=== PATIENT | male | born 1935 | race Asian ===

== ENCOUNTER 2018-05-05 18:39 | Emergency (ER) | payer OTHER ==
[~2018-05-05] VITALS: Ht 170.2 cm; Wt 81.6 kg
[2018-05-05] MEDS ORDERED: LOSARTAN POTASS25 MG ORAL (18:48)
[2018-05-05] MEDS ORDERED: LIPITOR80 MG ORAL (18:48)
[2018-05-05] MEDS ORDERED: ADALAT10 MG ORAL (18:48)
[2018-05-05 19:02] VITALS: BP 128/70
--- NOTE | 2018-05-05 19:02 | NUR ---
ED Nurse Note: Patient walked into ED c/o of a fever and cough, patient stated he started feeling these symptoms 2 weeks ago, came to ED because he has been having SOB, denies any pain. HR 106, other VSS. Will cont to monitor.
--- NOTE | 2018-05-05 19:09 | NUR ---
HAND-OFF: Report given to Bj Carcamo RN.
--- NOTE | 2018-05-05 19:10 | NUR ---
ED Nurse Note: Received report from RACHEL Garza. Pt in bed with no signs of acute distress. Family at bedside. Denies pain or SOB. elevated heart rate noted.
[2018-05-05] MEDS ORDERED: dilTIAZem HCl 25mg/5ml Inj IVP ONE (19:15)
--- NOTE | 2018-05-05 19:21 | Emergency Room Report ---
History of Present Illness General Chief Complaint: Upper Respiratory Illness Source: Patient, Family Member Present Illness HPI Patient is complaining about shortness of breath. He states this is been going on for one week. He was seen at another hospital where he had back x-rays for back pain. Apparently no EKG was done at that time. He's seen a master sonar technician in December. According to those notes he has hypertension aortic stenosis. He supposed be taking aspirin, clonidine, losartan, nifedipine and simvastatin. He states he has chest pain to his son but he denies chest pain to me. He's never heard of atrial fibrillation. The patient is quite variable historian and sometimes states that he's had a fever but then other times has not. There's been no loss of consciousness. The he did not receive a flu shot. He does not have productive phlegm. He was seen somewhere on and it's uncertain whether vital signs were done. Apparently x-rays were done for lower back pain. The family also states that he's had a history of kidney disease. There is no documentation of this in the records from December. Allergies: Coded Allergies: No Known Allergies (Unverified , 05/05/18) Patient History Past Medical History: see triage record Social History: Reports: smoking - stopped 10 years ago; Denies: alcohol use, drug use Social History Narrative retired soldier Reviewed Nursing Documentation: PMH: Agreed; PSxH: Agreed Nursing Documentation-PMH Past Medical History: No History, Except For Hx Hypertension: Yes Review of Systems All Other Systems: negative except mentioned in HPI - variable historian Physical Exam Vital Signs Date Time Temp Pulse Resp B/P (MAP) Pulse Ox O2 Delivery O2 Flow Rate FiO2 05/05/18 18:42 99.0 109 18 93 Room Air 05/05/18 19:02 128/70 Sp02 EP Interpretation: reviewed, abnormal - Interpreted as low by me General Appearance: well appearing, no apparent distress, GCS 15 Head: normocephalic Eyes: bilateral eye PERRL, bilateral eye other - arcus ENT: moist mucus membranes Neck: supple Respiratory: lungs clear, normal breath sounds Cardiovascular #1: no edema, tachycardia, irregularly irregular, other - I cannot hear murmur Cardiovascular #2: 2+ radial (R) Gastrointestinal: normal inspection, normal bowel sounds, non tender, no mass, non-distended Musculoskeletal: back normal, gait/station normal, normal range of motion Neurologic: alert, oriented x3, motor strength/tone normal, DTRs symmetric, sensory intact Psychiatric: mood/affect normal, other - poor historian Skin: normal inspection, warm/dry Medical Decision Making Diagnostic Impression: Primary Impression: Atrial fibrillation with RVR Additional Impressions: History of aortic stenosis Renal insufficiency ER Course Patient presents with dyspnea. Differential includes upper respiratory infection, acute myocardial infarction, arrhythmia, pulmonary embolus, congestive heart failure, exacerbation of valvular heart disease amongst others. Evaluation will be with EKG, chest x-ray and labs. On a color television console monitor patient has atrial fibrillation with rapid ventricular response rate. EKG with A. fib with rapid ventricular response no hyperacute changes. Diltiazem is ordered. After diltiazem, second EKG done: heart rate is 70-74 but still atrial fibrillation, no acute changes. Chest x-ray was COPD without congestive failure. Awaiting labs. Labs significant for renal dysfunction with a negative troponin. Influenza negative. Patient improved without any coughing or dyspnea. Discussed with Dr. Alonso who accepts the patient to [facility]. Discussion with patient and family regarding diagnosis and possible future treatment considerations including anticoagulation and echocardiogram. The symptoms have been present for 1week. This suggests that if cardioversion is considered, anticoagulation might be performed before. In addition with history of valvular heart disease, the patient will probably remain in chronic atrial fibrillation. However echocardiogram will help to determine whether cardioversion should be attempted. Laboratory Tests Test 05/05/18 19:35 White Blood Count 11.8 K/UL (4.8-10.8) H Red Blood Count 3.93 M/UL (4.70-6.10) L Hemoglobin 12.8 G/DL (14.2-18.0) L Hematocrit 37.9 % (42.0-52.0) L Mean Corpuscular Volume 96 FL (80-99) Mean Corpuscular Hemoglobin 32.5 PG (27.0-31.0) H Mean Corpuscular Hemoglobin Concent 33.7 G/DL (32.0-36.0) Red Cell Distribution Width 11.7 % (11.6-14.8) Platelet Count 160 K/UL (150-450) Mean Platelet Volume 6.6 FL (6.5-10.1) Neutrophils (%) (Auto) 66.1 % (45.0-75.0) Lymphocytes (%) (Auto) 19.0 % (20.0-45.0) L Monocytes (%) (Auto) 9.6 % (1.0-10.0) Eosinophils (%) (Auto) 4.1 % (0.0-3.0) H Basophils (%) (Auto) 1.2 % (0.0-2.0) Prothrombin Time 9.6 SEC (9.30-11.50) Prothrombin Time INR 0.9 (0.9-1.1) PTT 33 SEC (23-33) Sodium Level 135 MMOL/L (136-145) L Potassium Level 4.9 MMOL/L (3.5-5.1) Chloride Level 102 MMOL/L (98-107) Carbon Dioxide Level 21 MMOL/L (21-32) Anion Gap 12 mmol/L (5-15) Blood Urea Nitrogen 40 mg/dL (7-18) H Creatinine 2.6 MG/DL (0.55-1.30) H Estimate Glomerular Filtration Rate mL/min (>60) Glucose Level 107 MG/DL (74-106) H Calcium Level 8.9 MG/DL (8.5-10.1) Total Bilirubin 0.4 MG/DL (0.2-1.0) Aspartate Amino Transferase (AST) 44 U/L (15-37) H Alanine Aminotransferase (ALT) 33 U/L (12-78) Alkaline Phosphatase 82 U/L (46-116) Total Creatine Kinase 315 U/L (26-308) H Troponin I 0.000 ng/mL (0.000-0.056) Pro-B-Type Natriuretic Peptide 581 pg/mL (0-125) H Total Protein 8.5 G/DL (6.4-8.2) H Albumin 3.3 G/DL (3.4-5.0) L Globulin 5.2 g/dL Albumin/Globulin Ratio 0.6 (1.0-2.7) L Thyroid Stimulating Hormone (TSH) 0.679 uiU/mL (0.358-3.740) Microbiology Date/Time Source Procedure Growth Status 05/05/18 19:40 Nose Influenza Types A,B Antigen (JERMAINE) - Final Complete EKG Diagnostic Results Rate: tachycardiac Rhythm: other - a fib ST Segments: no acute changes ASA given to the pt in ED: Yes Rhythm Strip Diag. Results EP Interpretation: yes Rhythm: no PVC's, other - a fib RVR Chest X-Ray Diagnostic Results Chest X-Ray Diagnostic Results : Chest X-Ray Ordered: Yes # of Views/Limited/Complete: 1 View Indication: Shortness of Breath EP Interpretation: Yes Interpretation: no consolidation, no effusion, no pneumothorax, other - COPD Impression: Other Electronically Signed by: Electronically signed by Chepe Shaver MD Last Vital Signs Date Time Temp Pulse Resp B/P (MAP) Pulse Ox O2 Delivery O2 Flow Rate FiO2 05/05/18 21:20 99.0 116 18 128/70 99 Room Air Status: improved Disposition: [facility] Condition: Serious Chepe Shaver MD May 05, 2018 19:21
--- NOTE | 2018-05-05 19:35 | NUR ---
ED Nurse Note: IV access established. Blood drawn; sent down to lab.
[2018-05-05 20:01] LABS: BASOPHILS % (AUTO) 1.2 % (0.0-2.0); EOSINOPHILS % (AUTO) 4.1 % (0.0-3.0); HEMATOCRIT 37.9 % (42.0-52.0); HEMOGLOBIN 12.8 G/DL (14.2-18.0); MEAN CORPUSCULAR VOLUME 96 FL (80-99); MONOCYTES % (AUTO) 9.6 % (1.0-10.0); NEUTROPHILS % (AUTO) 66.1 % (45.0-75.0); PLATELET COUNT 160 K/UL (150-450); RED BLOOD COUNT 3.93 M/UL (4.70-6.10); RED CELL DISTRIBUTION WIDTH 11.7 % (11.6-14.8); WHITE BLOOD COUNT 11.8 K/UL (4.8-10.8)
[2018-05-05 20:17] LABS: ANION GAP 12 mmol/L (5-15); BLOOD UREA NITROGEN 40 mg/dL (7-18); CALCIUM 8.9 MG/DL (8.5-10.1); CARBON DIOXIDE 21 MMOL/L (21-32); CHLORIDE 102 MMOL/L (98-107); CREATININE 2.6 MG/DL (0.55-1.30); INR 0.9 (0.9-1.1); POTASSIUM 4.9 MMOL/L (3.5-5.1); SODIUM 135 MMOL/L (136-145)
--- NOTE | 2018-05-05 20:21 | NUR ---
ED Nurse Note: Patient cleared for transfer per ERMD. AO4. NAD. VSS. Accompanied by family member. Pt transferred out with [facility]. Belongings remain with family. IV access remains. Addendum: 05/05/18 at 2234 by LCRISOSTOM Wrong time.
[2018-05-05 20:29] LABS: ALANINE AMINOTRANSFERASE 33 U/L (12-78); ALBUMIN 3.3 G/DL (3.4-5.0); ALBUMIN/GLOBULIN RATIO 0.6 (1.0-2.7); ALKALINE PHOSPHATASE 82 U/L (46-116); ASPARTATE AMINO TRANSFERASE 44 U/L (15-37); BILIRUBIN,TOTAL 0.4 MG/DL (0.2-1.0); CREATINE KINASE 315 U/L (26-308)
--- NOTE | 2018-05-05 20:41 | NUR ---
ED Nurse Note: Report given to RACHEL Rey of [facility]. Patient to be admitted in -B under the care of MD Doug
[2018-05-05 21:20] VITALS: BP 128/70
--- NOTE | 2018-05-05 21:20 | NUR ---
ED Nurse Note: Patient cleared for transfer per ERMD. AO4. NAD. VSS. Accompanied by family member. Pt transferred out with [facility]. Belongings remain with family. IV access remains.
--- NOTE | 2018-05-06 10:58 | Diagnostic Imaging Report ---
Indication: Dyspnea, cough Technique: One view of the chest Comparison: none Findings: No acute infiltrates, effusions, or congestion. Tortuous calcified aorta. Normal heart size. Upper mediastinum unremarkable. Impression: No acute process.
== END 2018-05-05 21:20 | disposition short-term general hospital (02) ==
LOC: EMR 19:26
DX: I48.91 Unspecified atrial fibrillation (principal); N28.9 Disorder of kidney and ureter, unspecified; I10 Essential (primary) hypertension; Z87.891 Personal history of nicotine dependence; I35.0 Nonrheumatic aortic (valve) stenosis
CPT/HCPCS: 36415; 71045; 80053; 82550; 83880; 84443; 84484; 85025; 85610; 85730; 86710; 93005; 96374; 99284